=== PATIENT | male | born 1965 | race Caucasian/White ===

== ENCOUNTER 2022-06-27 05:55 | Outpatient (CLI) | payer BC ==
[~2022-06-27] VITALS: Ht 182.9 cm; Wt 71.7 kg
[2022-06-27] MEDS ORDERED: AMLO-251 PO (09:16)
== END 2022-06-27 09:50 | disposition home or self-care (01) ==
LOC: PREOP 05:55
PROVIDERS: ATTEND Surgery
DX: Z01.818 Encounter for other preprocedural examination (principal)

== ENCOUNTER 2022-07-04 09:41 | Day surgery (SDC) | payer BC ==
[~2022-07-04] VITALS: Ht 183 cm; Wt 71.7 kg
[~2022-07-04 09:41] MED LIST: AMLO-251 PO
[2022-07-04] MEDS ORDERED: LACTATED RINGERS 1,000 ML IV STA (09:53)
[2022-07-04] MEDS ORDERED: PROPOFOL INJECTION 50 ML IV ONE (09:58)
[2022-07-04] MEDS ORDERED: LIDOCAINE JELLY 2% 6 ML SYRINGE MM PRN (10:00)
[2022-07-04 10:05] VITALS: BP 149/95
[2022-07-04] MEDS ORDERED: LIDOCAINE JELLY 2% 6 ML SYRINGE ONE (10:15)
[2022-07-04] MEDS ORDERED: ONDANSETRON 4 MG (ZOFRAN) ORAL DISSOLVE TAB PO PRN (10:30)
[2022-07-04] MEDS ORDERED: ONDANSETRON 4 MG/2 ML (SDV) Z0FRAN IVP PRN (10:30)
[2022-07-04] MEDS ORDERED: PANT40TA2 PO (10:32)
[2022-07-04] MEDS ORDERED: HURRICAINE EXT TUBE (BENZOCAINE) ONE (10:33)
--- NOTE | 2022-07-04 10:33 | Discharge Inst-Surgical ---
D/C Lap Instructions-KIDO New, Converted, or Re-Newed RX: RX on Chart Follow Up Appt Activity as tolerated High Fiber Diet 25g or more per day Avoid Alcohol, Caffeine, Spicy [place] and Acid foods. Drink 64 fluid oz or more of fluids per day. Symptoms to Report: Fever over 101 degree F, Nausea/Vomiting If any problems/questions: Contact your physician or go to Emergency Room ASH GRACE MD Jul 04, 2022 10:32
[2022-07-04] MEDS ORDERED: HURRICAINE EXT TUBE (BENZOCAINE) XX ONE (11:00)
[2022-07-04 11:30] VITALS: BP 100/63
[2022-07-04 11:35] VITALS: BP 107/73
[2022-07-04 11:40] VITALS: BP 107/73
--- NOTE | 2022-07-04 11:42 | Progress Note-Pre Operative ---
Pre-Operative Progress Note Date of Available H&P: Jul 04, 2022 Date H&P Reviewed: Jul 04, 2022 Time H&P Reviewed: 10:00 History & Physical: No changes noted Pre-Operative Diagnosis: fatigue, PUD, screening colo ASH GRACE MD Jul 04, 2022 11:42
--- NOTE | 2022-07-04 11:44 | Progress Note-Post Operative ---
Post-Operative Progess Note Surgeon (s)/Clean Room Operator (s) Surgeon ASH GRACE MD Clean Room Operator: none Pre-Operative Diagnosis fatigue, PUD, screening colo Post-Operative Diagnosis reflux esophagitis(stage C) with mild dist esoph strictute, small-mod HH(2.5cm), moderate gastritis, small pyloric erosions with overlying fibrin clot. chronic stage 2 ext and int hemorrhoids. Procedure & Operative Findings Date of Procedure 07/04/22 Procedure Performed/Findings EGD with bx and balloon dilatation. Colonoscopy. Anesthesia Type mac Estimated Blood Loss Estimated blood loss (mL): minimal Specimens/Packing Specimens Removed ge jxn, antrum, pyloric ulcer. ASH GRACE MD Jul 04, 2022 11:44
[2022-07-04 12:00] VITALS: BP 107/73
--- NOTE | 2022-07-04 15:28 | OPERATIVE REPORT ---
DATE OF SERVICE: 07/04/2022 ATTENDING SOFTWARE DEVELOPMENT COORDINATOR: Kenya Ashley APRN. PREOPERATIVE DIAGNOSES: Fatigue, peptic ulcer disease, screening colonoscopy. POSTOPERATIVE DIAGNOSES: Reflux esophagitis, [place] grade C with a distal esophageal stricture, small hiatal hernia approximately 2.5 cm in size, moderate gastritis with pyloric erosions. No active bleeding. Chronic stage II, external and internal hemorrhoids. PROCEDURE: EGD with biopsy, colonoscopy. SURGEON: Ash Grace MD ANESTHESIA: Monitored anesthesia care. ESTIMATED BLOOD LOSS: Minimal. FINDINGS: Reflux esophagitis, [place] grade C with a distal esophageal stricture, small hiatal hernia approximately 2.5 cm in size, moderate gastritis with pyloric erosions. No active bleeding. Chronic stage II, external and internal hemorrhoids. DISPOSITION: The patient tolerated the procedure well. INDICATIONS: The patient is a 56-year-old male referred over to us for a screening colonoscopy. He has not had a colonoscopy up to this point in his life. He does have a complaint of persistent fatigue, which has been occurring for the past year. He also does have some epigastric burning sensation, likely consistent with some level of peptic ulcer disease or gastroesophageal reflux disease. He does have a number of risk factors for this including drinking 6 drinks daily as well as a greater than 40-pack year smoking history. DESCRIPTION OF PROCEDURE: The patient was brought to the endoscopy suite and laid in the left lateral decubitus position. After adequate IV pain and sedative medications and monitored anesthesia care, the mouthpiece was applied. The endoscope was placed in the mouth, visualizing the pharynx and hypopharyngeal region. Vocal cords, epiglottis and vallecula identified and appeared to be normal. The endoscope was then gently intubated at the esophageal opening and esophagus insufflated. The endoscope was then advanced through the first, second and third portions of esophagus at the level of the GE junction, reflux esophagitis, [place] grade C identified with a mild distal esophageal stricture. A biopsy was taken with forceps with visualization of good hemostasis. The endoscope was then advanced into the stomach and endoscope retroflexed visualizing small hiatal hernia approximately 2.5 cm in size. A biopsy was taken of the antrum to rule out H. pylori with visualization of good hemostasis. The endoscope was then advanced into the pylorus where there were 3 areas of erosions, which may have been ulcerations at some point. There was no active bleeding. These were small and a biopsy was taken of one of these with forceps with visualization of good hemostasis. There were no ulcerations identified in the duodenum. The balloon was then placed into the stomach and pulled back to the area of the stricture. We then proceeded in a grade stepwise fashion from 2-4, then eventually 6 atmospheres of pressure or 20 mm in luminal diameter with moderate resistance and left this in place for approximately 60 seconds. The balloon was then desufflated and removed with visualization of good hemostasis as well as no mucosal tears. The endoscope was then slowly withdrawn while taking a second look and suctioning of residual air with no additional findings. A digital rectal examination was performed which revealed mild chronic stage II, external and internal hemorrhoids. Normal sphincter tone was felt and there were no palpable masses. Prostate gland was palpable and appeared normal. The endoscope was then intubated into the anus, rectum gently insufflated. The endoscope was then advanced through the valves of Mark of the rectum with no polyps or any neoplasms identified. We then proceeded through the sigmoid colon where no diverticulosis identified. The endoscope was then advanced to the remainder of the descending, transverse and ascending colon to the cecum, which were normal. No polyps or any neoplasms identified. The endoscope was then slowly withdrawn while taking a second look and suctioning of residual air with no additional findings. The patient tolerated the procedure well. We will recommend the necessary lifestyle and dietary accommodation including small and more frequent meals, avoidance of eating at night as well as head elevation while lying supine. He also needs to stop or moderate smoking, alcohol as well as caffeinated beverages. We will also start him on omeprazole 40 mg daily. We will also recommend a high-fiber diet with initiation of a fiber supplement, which should equal or exceed 30 grams daily as well as significant amounts of water to promote soft consistency stools on a daily basis. If he is asymptomatic, he does not need another colonoscopy for another 10 years. Job ID: [id number] DocumentID: [id number] Dictated Date: 07/04/2022 11:31:03 Software Engineer Date: 07/04/2022 15:26:00 Dictated By: ASH GRACE MD
== END 2022-07-04 12:09 | disposition home or self-care (01) ==
LOC: ENDO 09:41
PROVIDERS: ATTEND Surgery
DX: Z12.11 Encounter for screening for malignant neoplasm of colon (principal); K22.2 Esophageal obstruction; K21.00 Gastro-esophageal reflux disease with esophagitis, without bleeding; K29.50 Unspecified chronic gastritis without bleeding; K44.9 Diaphragmatic hernia without obstruction or gangrene; K25.9 Gastric ulcer, unspecified as acute or chronic, without hemorrhage or perforation; K64.1 Second degree hemorrhoids; K64.4 Residual hemorrhoidal skin tags; F17.210 Nicotine dependence, cigarettes, uncomplicated
CPT/HCPCS: 88305